=== PATIENT | female | born 1980 | race Hispanic/Latino ===

== ENCOUNTER 2018-05-17 11:13 | Outpatient (CLI) | payer BC ==
--- NOTE | 2018-05-17 13:24 | RAD ---
4 VIEW LEFT KNEE: Date: 05/17/18 INDICATION: Pain. FINDINGS: No fracture, dislocation, or significant arthropathy. No significant joint capsular distention. IMPRESSION: No acute osseous abnormality left knee. POS: [facility]
== END 2018-05-17 11:14 | disposition home or self-care (01) ==
LOC: SCSRAD 11:13
PROVIDERS: ATTEND Family Medicine
DX: S83.422A Sprain of lateral collateral ligament of left knee, initial encounter (principal)

== ENCOUNTER 2018-07-19 11:53 | Outpatient (CLI) | payer BC ==
--- NOTE | 2018-07-19 12:13 | RAD ---
EXAM: Chest 2 views: HISTORY: Chest pain COMPARISON: None. FINDINGS: There is a normal-sized cardiomediastinal silhouette. There is no evidence of consolidation, mass, or pleural effusion. The bones are unremarkable. IMPRESSION: No evidence of acute cardiopulmonary disease
== END 2018-07-19 11:54 | disposition home or self-care (01) ==
LOC: SCSRAD 11:53
PROVIDERS: ATTEND Family Medicine
DX: R07.9 Chest pain, unspecified (principal)
CPT/HCPCS: 71046

== ENCOUNTER 2018-08-23 09:26 | Outpatient (CLI) | payer BC | END 2018-08-23 09:27 | disposition home or self-care (01) | LOC: CP 09:26 | PROVIDERS: ATTEND Family Medicine | DX: R07.9 Chest pain, unspecified (principal) | CPT/HCPCS: 94010; 94727; 94729 ==

== ENCOUNTER 2019-08-08 13:21 | Outpatient (CLI) | payer BC ==
--- NOTE | 2019-08-08 14:37 | ULT ---
RIGHT LOWER EXTREMITY VENOUS DUPLEX EXAM: INDICATION: Right lower extremity pain and edema. TECHNIQUE: Deep veins of right lower extremity evaluated with ultrasound and Doppler. Color Doppler with spectr al analysis and compression studies performed. FINDINGS: Deep veins of right lower extremity demonstrate normal blood flow and compression. No evidence of DV T. IMPRESSION: No evidence of right lower extremity deep vein thrombosis. POS: [facility]
== END 2019-08-08 13:22 | disposition home or self-care (01) ==
LOC: SCSULT 13:21
PROVIDERS: ATTEND Family Medicine
DX: M79.662 Pain in left lower leg (principal); I83.899 Varicose veins of unspecified lower extremity with other complications

== ENCOUNTER 2021-04-15 12:55 | Outpatient (CLI) | payer BC | END 2021-04-15 12:56 | disposition home or self-care (01) | LOC: SCSRAD 12:55 | PROVIDERS: ATTEND Family Medicine | DX: M25.571 Pain in right ankle and joints of right foot (principal) ==

== ENCOUNTER 2024-03-21 11:04 | Outpatient (CLI) | payer BC | END 2024-03-21 11:05 | disposition home or self-care (01) | LOC: SCSRAD 11:04 | PROVIDERS: ATTEND Family Medicine | DX: M54.50 Low back pain, unspecified (principal); M47.816 Spondylosis without myelopathy or radiculopathy, lumbar region | CPT/HCPCS: 72100 ==

== ENCOUNTER 2024-03-29 10:39 | Outpatient (CLI) | payer BC | END 2024-03-29 10:40 | disposition home or self-care (01) | LOC: SCSMRI 10:39 | PROVIDERS: ATTEND Family Medicine | DX: M54.50 Low back pain, unspecified (principal); M51.379 Other intervertebral disc degeneration, lumbosacral region without mention of lumbar back pain or lower extremity pain; M48.061 Spinal stenosis, lumbar region without neurogenic claudication; M47.816 Spondylosis without myelopathy or radiculopathy, lumbar region | CPT/HCPCS: 72148 ==